=== PATIENT | female | born 1940 | race Caucasian/White ===

== ENCOUNTER 2023-04-03 16:57 | Emergency (ER) | payer OTHER, SELFPAY ==
[2023-04-03 17:04] VITALS: BP 151/91
[2023-04-03 17:37] LABS: COVID-19 Antigen Negative (Negative)
--- NOTE | 2023-04-03 19:03 | ED.GENMED ---
History of Present Illness
General
Chief Complaint: Weakness
Source: patient and family
Exam Limitations: none
Time Seen by Provider: 04/03/23 18:53
Travel History
Have you had any contact with someone who has COVID-19?: No
Do you have any symptoms of coronavirus? Fever > 100 degrees, chills, cough, shortness of breath, sore throat, loss of taste or smell, muscle aches, or headache?: No
History of Present Illness
History of Present Illness:
This is a 82 year old female that comes in with c/o not eating or drinking. Family states that she started last weekend with a fever and wasn't getting OOB. States that they called the PCP and they felt she had the flu. States that she is not eating
or drinking much since last weakened as she is nauseated. Patient states that she feels SOB and has a cough. States that she had diarrhea and a headache. Denies any fever, since about Tuesday or Tuesday, denies chest pain, abd pain, dizziness,
urinary burning.
Past History
Past History
ED Past Medical History: CVA (With left sided weakness), HTN, Hypercholesterolemia, Hypothyroidism, Psychiatric (Depression) and Other ( peptic ulcer disease, Pulmonary edema, )
ED Past Surgical History: Appendectomy, Gynecological (Tubal ligation), Orthopedic (Bilateral shoulder surgeries) and Other (Gastric sleeve, cataracts)
Social History
Tobacco: Former smoker
Alcohol: Occasional
Drug: None
Personal:
Living: alone
Employment: Retired
Family History
Family History: Hypertension
Review of Systems
Review of Systems
All Other Systems: ROS reviewed and negative except as documented in HPI and ROS
Constitutional: Reports no symptoms; Denies fever or chills
EENT: Reports no symptoms
Respiratory: Reports cough and trouble breathing
Cardiac: Reports no symptoms; Denies chest pain
ABD/GI: Reports nausea, vomiting (yesterday) and diarrhea; Denies abdominal pain
: Reports no symptoms; Denies dysuria, frequency or urgency
Musculoskeletal: Reports no symptoms
Skin: Reports no symptoms
Neurological: Reports headache; Denies dizzy
Psychiatric: Reports no symptoms
Phy Exam
General Physical Exam
General Presentation: no apparent distress
General age: appears stated age
General Skin: warm and dry
General Habitus: elderly
General Mental: alert
General Hydration: appears well hydrated
ENT Exam
ENT Exam: TM's normal, pharynx normal and neck supple
Eye Exam
Eye Exam: EOMI
Cardiovascular Exam
Cardiovascular Exam: regular rate/rhythm, no edema, no murmur and normal peripheral pulses
Pulmonary Exam
Pulmonary Exam: lungs clear, no respiratory distress, no rales, chest non tender, no crackles, no rhonchi, no wheezing and other (Harsh cough noted)
Gastrointestinal Exam
Gastrointestinal Exam: normal bowel sounds, non tender, soft, no organomegaly, no pulsatile mass and non distended
Musculoskeletal Exam
Musculoskeletal Exam: full ROM and no edema
Skin Exam
Skin Exam: normal color, warm/dry, no rash and no petechia
Psychiatric Exam
Psychiatric Exam: normal mood/affect
Course
Orders/Labs/Results
Orders:
Orders
04/03/23 17:05
Electrocardiogram (*1) Urgent
Reason for Study: Chest Pain
EKG- Treatment ONCE
04/03/23 17:13
COVID-19 Antigen Urgent
Source: Nasal Swab
Influenza A+B Rapid Molecular Urgent
MARTHA Source: Nasal Swab
Specimen Description:
04/03/23 19:03
0.9% Sodium Chloride 1000 ml [Nss] 1,000 ml IV BOLUS
Ondansetron Injectable [Zofran] 4 mg IV NOW STA
CR Chest - 2 Views Urgent
Comment:
Reason For Exam: cOUGH,
04/03/23 20:54
Complete Blood Count/With Diff Urgent
Troponin I Urgent
04/03/23 21:21
Comprehensive Metabolic Panel Urgent
Abnormal Lab Results
04/03/23 04/03/23
20:54 21:21
MCH 31.2 H pg
(27.0-31.0)
MPV 11.4 H fL
(7.4-10.4)
Absolute Monos (auto) 0.8 H 10^3/uL
(0.1-0.6)
Monocytes % 13.4 H %
(1.7-9.3)
Creatinine 1.1 H mg/dL
(0.6-1.0)
AST 37 H U/L
(14-36)
04/03/23 20:54
04/03/23 21:21
COVID negative. Influenza A positive
Vital Signs
Initial and Last Documented VS:
Initial Vital Signs
Temp Pulse Resp BP Pulse Ox
98.6 F 91 18 151/91 96
04/03/23 17:04 04/03/23 17:04 04/03/23 17:04 04/03/23 17:04 04/03/23 17:04
Last Documented Vital Signs
Temp Pulse Resp BP Pulse Ox
98.6 F 91 18 149/107 98
04/03/23 17:04 04/03/23 17:04 04/03/23 17:04 04/03/23 22:00 04/03/23 22:00
MDM/Problems Addressed
Differential Diagnosis Includes:
Influenza A, Dehydration
MDM/Problems Addressed:
This is a 82 year old female that comes in with c/o not eating or drinking. State that she started last weekend with a fever. State that the PCP felt that she had the flu. Patient has not been eating or drinking over the week as she felt she was
nauseated after she took a few bites.
Will get labs, Give IV fluids and Zofran.
Back into see patient. Patient states that she is feeling better. Explained that her Chest x-ray is normal. She is negative for COVID but is positive for Influenza A. Patient encouraged to increase her water intake. Will give patient a prescription
for Zofran to help with any nausea. Patient told to stay away form Milk and milk products until her diarrhea stops. follow up with the family doctor. Return with any concerns.
Chronic conditions affecting care:
NA
Acute Exacerbation and/or Progression of Chronic Illness:
NA
*Radiology
Radiology exam reviewed: radiology read reviewed (Chest-No evidence of active cardiopulmonary disease. )
*Pulse Oximetry
Patient hypoxic: no
*EKG
Interpreted by ED Provider?: Yes
Heart Rate: 73
Rate: normal
Rhythm: sinus
Hendricks: normal axis
Interval: normal interval
QRS Pattern: normal QRS
Ischemia: no ischemia (Checked by Dr. Munson)
*Critical Care Note
Total Time (30-74mins, 75-104mins- exclusive of procedures): Not Applicable
ED Attending Note
-
Portions of this chart may have been created with voice recognition software.� Occasional wrong word or��sound alike� substitutions may have occurred due to the inherent limitations of voice recognition software.
Discharge Plan
Departure
Patient Disposition: Home (Routine Discharge)
Date of Disposition: 04/03/23
Time of Disposition: 22:10
Patient with high blood pressure during this ER visit?: Yes
Condition: Good
Covid-19: Negative COVID-19
Discharge Problem:
Influenza A
Instructions: Flu, Adult (DC), BLOOD PRESSURE
Prescriptions:
New
ondansetron 4 mg tablet,disintegrating
4 mg PO Q8H PRN (Reason: nausea and vomiting) Qty: 7 0RF
No Action
fluoxetine 20 MG capsule
20 mg PO DAILY
cyanocobalamin (vitamin B-12) 1,000 MCG tablet
1,000 mcg PO DAILY
folic acid 0.4 MG tablet
0.4 mg PO DAILY
ascorbic acid (vitamin C) [Vitamin C] 500 MG tablet
1,000 mg PO DAILY
omeprazole 20 MG capsule,delayed release(DR/EC)
20 mg PO DAILY
vitamin B complex 1 TAB tablet
1 tab PO DAILY
Hair,Skin and Nails 1 EACH tablet
1 ea PO DAILY
biotin 1 MG tablet
1 mg PO DAILY
cholecalciferol (vitamin D3) 2,000 UNITS tablet
5,000 units PO DAILY
multivitamin with folic acid [Tab-A-Andrzej] 1 TABLET tablet
1 tab PO DAILY
L.acidoph, paracasei,B. lactis 1 EACH capsule
1 ea PO DAILY
aspirin 81 MG tablet,chewable
81 mg PO DAILY Qty: 30 0RF
fluoxetine 40 mg Capsule
40 mg PO DAILY
lisinopril 2.5 mg Tablet
2.5 mg PO DAILY
Medical Cannabus
1 dose PO DAILY PRN (Reason: pains)
Patient Comments:
as per ecw patient could be on tinture
Referrals:
Kathy Jarvis MD [Family Provider] - Follow up in 2-3 days
Activity Restrictions/Additional Instructions:
As discussed, you have Influenza A. This is a viral syndrome. Please increase your water intake to 8-8oz glasses daily. Stay away form milk and milk products until the diarrhea stops as this is hard for the gut to digest. Simple food such as rice,
potatoes and chicken are easily digested. Bananas are also binding. You have had a prescription for Zofran to help with the nausea sent to your Pharmacy. Please follow up with the family doctor for recheck. IF YOU HAVE ANY OTHER CONCERNS PLEASE
RETURN TO THE EMERGENCY ROOM.
Interventions
Interventions:
*Risk Screen - Suicide Last Done: 04/03/23 20:26
*General Assessment Last Done: 04/03/23 20:26
*Neglect/Abuse Screening Last Done: 04/03/23 20:26
ED- Fall Risk Assessment Last Done: 04/03/23 20:26
*ED COVID-19 Vaccine History Last Done: 04/03/23 20:26
ED- Cardiac Assessment Last Done: 04/03/23 20:26
ED- Neurological Assessment Last Done: 04/03/23 20:26
ED- Pulmonary Assessment Last Done: 04/03/23 20:26
[2023-04-03 20:26] VITALS: BMI 22.2
[2023-04-03 20:31] VITALS: BP 157/76
[2023-04-03] MEDS: NSS 1000 IV (20:55)
[2023-04-03] MEDS: ZOFRAN 4 MG IV (20:55)
[2023-04-03 21:08] LABS: % Basophils 0.3 % (0-2); % Immature Granulocytes 0.3 % (0-0.5); % Lymphocytes 42.5 % (20.5-51.1); % Monocytes 13.4 % (1.7-9.3); % Neutrophils 42.5 % (42.2-75.2); Absolute Eosinophils 0.1 10^3/uL (0-0.7); Absolute Lymphocytes 2.6 10^3/uL (1.2-3.4); Absolute Monocytes 0.8 10^3/uL (0.1-0.6); Absolute Neutrophils 2.6 10^3/uL (1.4-6.5); Hematocrit 38.1 % (37.0-47.0); Hemoglobin 13.4 g/dL (12.0-16.0); Mean Corp Hgb Conc. 35.2 g/dL (33.0-37.0); Mean Corpuscular Hgb 31.2 pg (27.0-31.0); Mean Corpuscular Volume 88.6 fL (81.0-99.0); Mean Platelet Volume 11.4 fL (7.4-10.4); Nucleated Red Blood Cells % 0 %; White Blood Cell Count 6.1 10^3/uL (4.8-10.8)
[2023-04-03 21:21] LABS: Platelet Count 130 10^3/uL (130-400)
[2023-04-03 21:22] VITALS: BP 138/72
[2023-04-03 21:32] LABS: Troponin I < 0.012 ng/ml
[2023-04-03 21:51] LABS: ALT (SGPT) 28 U/L (0-35); AST (SGOT) 37 U/L (14-36); Albumin 3.8 g/dl (3.5-5.0); Alkaline Phosphatase 83 U/L (38-126); Blood Urea Nitrogen 15 mg/dl (7-17); Calcium 8.9 mg/dl (8.4-10.2); Carbon Dioxide 23 mmol/L (22-30); Chloride 101 mmol/L (98-107); Estimated Creatinine Clearance 33 ml/min; Glucose 99 mg/dl (70-99); Potassium 4.1 mmol/L (3.5-5.1); Sodium 136 mmol/L (135-145); Total Bilirubin 0.6 mg/dl (0.2-1.3); Total Protein 6.7 g/dl (6.3-8.2)
[2023-04-03 22:00] VITALS: BP 149/107
[2023-04-03 22:25] VITALS: BP 139/93
== END 2023-04-03 22:28 | disposition home or self-care (01) ==
LOC: EMR 16:57
PROVIDERS: Emergency Medicine; EMERGENCY PHYSICIAN Student in an Organized Health Care Education/Training Program; FAMILY PHYSICIAN Internal Medicine
DX: J10.1 Influenza due to other identified influenza virus with other respiratory manifestations (principal); R19.7 Diarrhea, unspecified; Z11.52 Encounter for screening for COVID-19
CPT/HCPCS: 99285; 96374; 96361; 71046; 80053; 84484; 85025; 87502; 87811; 93005

== ENCOUNTER → 2023-08-23 11:35 | Outpatient (REF) | payer OTHER, SELFPAY ==
[2023-08-23 12:20] LABS: % Basophils 1.3 % (0-2); % Eosinophils 3.2 % (0-6); % Immature Granulocytes 0.2 % (0-0.5); % Lymphocytes 26.7 % (20.5-51.1); % Neutrophils 59.6 % (42.2-75.2); Absolute Basophils 0.1 10^3/uL (0-0.2); Absolute Eosinophils 0.2 10^3/uL (0-0.7); Absolute Lymphocytes 1.7 10^3/uL (1.2-3.4); Absolute Monocytes 0.6 10^3/uL (0.1-0.6); Absolute Neutrophils 3.7 10^3/uL (1.4-6.5); Hemoglobin 12.7 g/dL (12.0-16.0); Mean Corp Hgb Conc. 33.4 g/dL (33.0-37.0); Mean Corpuscular Hgb 30.3 pg (27.0-31.0); Mean Corpuscular Volume 90.7 fL (81.0-99.0); Mean Platelet Volume 10.4 fL (7.4-10.4); Nucleated Red Blood Cells % 0 %; Platelet Count 246 10^3/uL (130-400); Red Blood Cell Count 4.19 10^6/uL (4.20-5.40); Red Cell Dist. Width 12.6 % (11.5-14.5); White Blood Cell Count 6.2 10^3/uL (4.8-10.8)
[2023-08-23 14:37] LABS: ALT (SGPT) 17 U/L (0-35); AST (SGOT) 25 U/L (14-36); Albumin 4.5 g/dl (3.5-5.0); Alkaline Phosphatase 85 U/L (38-126); Blood Urea Nitrogen 20 mg/dl (7-17); Calcium 9.6 mg/dl (8.4-10.2); Carbon Dioxide 23 mmol/L (22-30); Chloride 106 mmol/L (98-107); Glucose 90 mg/dl (70-99); HDL Cholesterol 106 mg/dl; LDL Cholesterol, Calculated 66 mg/dl; Potassium 4.1 mmol/L (3.5-5.1); Sodium 140 mmol/L (135-145); Total Cholesterol 197 mg/dl (50-199); Total Protein 7.4 g/dl (6.3-8.2); Triglyceride 126 mg/dl (10-149); Very Low Density Lipoprotein 25 mg/dl (0-30)
[2023-08-23 15:09] LABS: TSH Reflex To Free T4 0.39 uIU/ml (0.47-4.68)
[2023-08-23 15:49] LABS: Free T4 1.31 ng/dl (0.78-2.19)
== END ==
LOC: REG 11:35
PROVIDERS: ATTENDING PHYSICIAN Family Medicine
DX: E78.00 Pure hypercholesterolemia, unspecified (principal); E03.9 Hypothyroidism, unspecified; N18.32 Chronic kidney disease, stage 3b; Z13.1 Encounter for screening for diabetes mellitus; R53.83 Other fatigue
CPT/HCPCS: 36415; 80053; 80061; 84439; 84443; 85025